=== PATIENT | female | born 1990 | race Caucasian/White ===

== ENCOUNTER 2016-11-23 11:43 | Outpatient (CLI) | payer OTHER | END 2016-11-23 20:43 | disposition home or self-care (01) | LOC: MLB 11:43 | PROVIDERS: ATTEND Internal Medicine Geriatric Medicine | DX: J03.90 Acute tonsillitis, unspecified (principal) | CPT/HCPCS: 87081 ==

== ENCOUNTER 2017-03-16 16:38 | Outpatient (CLI) | payer OTHER | END 2017-03-16 20:07 | disposition home or self-care (01) | LOC: MRD 16:38 | PROVIDERS: ATTEND Internal Medicine Geriatric Medicine | DX: M25.532 Pain in left wrist (principal) ==